=== PATIENT | female | born 1935 | race Caucasian/White ===

== ENCOUNTER 2016-12-07 15:15 | Observation (INO) | payer MEDICARE, BC ==
[~2016-12-07] VITALS: Ht 152.4 cm; Wt 99.5 kg
[2016-12-07 16:19] LABS: HEMOGLOBIN 12.1 gm/dl (12.3-15.3); RED BLOOD COUNT 4.1 M/UL (4.00-5.10)
[2016-12-07 16:49] LABS: BUN/CREATININE RATIO 13 (0-10)
[2016-12-07] MEDS ORDERED: METOPROLOL TAR100 MG PO (21:37)
[2016-12-07] MEDS ORDERED: ALPRAZOLAM0.5 MG PO (21:38)
[2016-12-07] MEDS ORDERED: ASPIRIN81 MG PO (21:38)
[2016-12-07] MEDS ORDERED: ELIQUIS 5 MG TAB5 MG PO (21:38)
[2016-12-07] MEDS ORDERED: CRESTOR10 MG PO (21:40)
[2016-12-07] MEDS ORDERED: NITROGLYCERIN0.4 MG SL (21:42)
[2016-12-09] MEDS ORDERED: IMDUR ER TAB 6060 MG PO (16:31)
== END 2016-12-09 17:11 | disposition home or self-care (01) ==
LOC: ER1 15:15 → MED SURG 4 20:19 → ZEROF 20:19 → MED SURG 4 21:08
PROVIDERS: Emergency Medicine; ADMIT Internal Medicine
DX: R07.89 Other chest pain (principal); I25.10 Atherosclerotic heart disease of native coronary artery without angina pectoris; I48.0 Paroxysmal atrial fibrillation; I10 Essential (primary) hypertension; E78.5 Hyperlipidemia, unspecified; F41.9 Anxiety disorder, unspecified; Z87.891 Personal history of nicotine dependence; Z79.01 Long term (current) use of anticoagulants; Z79.82 Long term (current) use of aspirin; Z79.899 Other long term (current) drug therapy
CPT/HCPCS: ECHO; 36415; 71010; 78452; 80048; 80053; 80061; 82550; 82553; 83690; 83874; 83880; 84439; 84443; 84484; 85025; 85379; 85610; 85730; 93005; 93017; 93306; A9502; G0378; J2785

== ENCOUNTER 2020-07-24 15:37 | Emergency (ER) | payer OTHER ==
[~2020-07-24 15:37] MED LIST: ALPRAZOLAM0.5 MG PO; ASPIRIN81 MG PO; AZO CRANBERRY1 EACH PO; CELEXA10 MG PO; CRESTOR10 MG PO; CYANOCOBAL1000 MCG/1 IM; ECOTRIN81 MG PO; ELIQUIS 5 MG TAB5 MG PO; ESTRADIOL CREAM VG; FEOSOL325 MG PO; FUROSEMIDE10 MG/1 M1 IVP; HYDROCHLOROTHIA25 MG PO; IMDUR ER TAB 6060 MG PO; LASIX40 MG PO; LEVAQUIN500 MG PO; LOPRESSOR 50 MG50 MG PO; METOPROLOL TAR100 MG PO; MUPIROCIN30 GM TP; NITROGLYCERIN0.4 MG SL; PRINIVIL5 MG PO; VITAMIN D35000 UNI1 PO; ZANTAC150 MG PO
[2020-07-24 16:47] LABS: HEMOGLOBIN 11.3 gm/dl (12.3-15.3); RED BLOOD COUNT 3.69 M/UL (4.00-5.10); WHITE BLOOD COUNT 6.5 K/UL (4.5-11.0)
[2020-07-24 17:09] LABS: BUN/CREATININE RATIO 19 (0-10)
[2020-07-24] MEDS ORDERED: MECLIZINE HCL25 MG PO (21:38)
[2020-07-24] MEDS ORDERED: ONDANSETRON ODT4 MG SL (21:38)
== END 2020-07-24 21:52 | disposition home or self-care (01) ==
LOC: ER1 15:37
PROVIDERS: Physician Assistant
DX: R42 Dizziness and giddiness (principal); R31.29 Other microscopic hematuria; E78.5 Hyperlipidemia, unspecified; I48.91 Unspecified atrial fibrillation; I11.0 Hypertensive heart disease with heart failure; I50.9 Heart failure, unspecified; Z90.89 Acquired absence of other organs; Z88.1 Allergy status to other antibiotic agents
CPT/HCPCS: 70450; 71045; 80053; 81001; 82550; 82553; 82962; 83874; 84484; 85025; 93005; 99284

== ENCOUNTER → 2021-08-04 | Outpatient (CLI) | payer OTHER ==
[~2021-08-04] MED LIST changes: +MECLIZINE HCL25 MG PO; +ONDANSETRON ODT4 MG SL
== END ==
LOC: KOH-I 10:30
DX: R60.0 Localized edema (principal)
CPT/HCPCS: 93971